=== PATIENT | male | born 1970 | race American Indian/Alaskan Native ===

== ENCOUNTER 2017-05-12 07:13 | Outpatient (CLI) | payer BC ==
--- NOTE | 2017-05-12 09:30 | Ultrasound Report ---
ULTRASOUND RENAL BILATERAL HISTORY: Renal cysts. TECHNIQUE: transabdominal ultrasound with color Doppler interrogation. FINDINGS: The right kidney measures 9.7 x 4.4 x 5.2cm. Right renal cortex: 1.4cm. No focal right renal cyst, mass or nephrolithiasis. The left kidney measures 9.6 x 5.8 x 6.4cm. Left renal cortex: 2.0cm. 3 cysts near the inferior pole of the left kidney measure 2.4 cm, 1.2 cm, and 1.1 cm. One of the smaller cysts appears to be new since 01/29/16. There is normal central calyceal clustering and good preservation of the cortical thickness. There is no evidence of mass or hydronephrosis. The views of the bladder and the region of the ureters appear normal. IMPRESSION: Left renal cysts. Otherwise, unremarkable exam.
== END 2017-05-12 07:14 | disposition home or self-care (01) ==
LOC: US 07:13
PROVIDERS: ATTEND Urology
DX: N28.1 Cyst of kidney, acquired (principal)
CPT/HCPCS: 76770

== ENCOUNTER 2021-07-02 12:59 | Outpatient (CLI) | payer BC ==
--- NOTE | 2021-07-02 15:19 | Magnetic Resonance Report ---
MRI ABDOMEN WITHOUT AND WITH CONTRAST INDICATION / CLINICAL INFORMATION: N28.1LT KIDNEY CYST, ABD PAIN PATIENT HAD DIFFICULTY HOLDING BREATH.. TECHNIQUE: Multiplanar, multisequence series were obtained through the abdomen. 18 cc of clariscan was administe red for postcontrast imaging. COMPARISON: Renal ultrasound dated 05/12/2017. MR abdomen dated 11/17/2013 FINDINGS: LIVER: No significant abnormality. GALLBLADDER: No significant abnormality. BILE DUCTS: No significant abnormality. PANCREAS: No significant abnormality. SPLEEN: No significant abnormality. ADRENALS: No significant abnormality. RIGHT KIDNEY AND URETER: No significant abnormality. LEFT KIDNEY AND URETER: There are approximately 5 cysts in the inferior left kidney. The largest cyst measures 2.9 x 2.1 cm which appears slightly increased in size since the previous MR when it measure d 2.4 x 1.6 cm. The remaining cysts in the left kidney measure 1 cm or less. The cysts have a simple appearance with no septation, debris or soft tissue component. No renal mass or hydronephrosis. STOMACH AND VISUALIZED BOWEL: No significant abnormality. PERITONEUM: No free fluid. No free air. No fluid collection. LYMPH NODES: No significant adenopathy. AORTA and ARTERIES: No significant abnormality. IVC and VEINS: No significant abnormality. ADDITIONAL FINDINGS: None. SKELETAL SYSTEM: No significant abnormality. IMPRESSION: Multiple simple appearing left renal cysts as described above. No complex cyst or renal mass. Otherw ise unremarkable exam. Signer Name: Marquis Lombardi Jr, MD Signed: 07/02/2021 3:02 PM Workstation Name: [id number]
== END 2021-07-02 13:00 | disposition home or self-care (01) ==
LOC: MRI 12:59
PROVIDERS: ATTEND Urology
DX: N28.1 Cyst of kidney, acquired (principal)
CPT/HCPCS: 74183; A9575